=== PATIENT | female | born 2000 | race Caucasian/White ===

== ENCOUNTER 2018-02-05 21:32 | Emergency (ER) | payer OTHER, MEDICAID ==
[~2018-02-05] VITALS: Ht 157.5 cm; Wt 112.0 kg
[~2018-02-05 21:32] MED LIST: CYCL-1 PO; IBUPROFEN 600MG PO; NAPR-56 PO
[2018-02-05 21:41] VITALS: BP 139/92
[2018-02-06] MEDS ORDERED: traMADol 50MG tablet PO ONE (00:30)
[2018-02-06] MEDS ORDERED: TRAM50TA2 PO (00:41)
== END 2018-02-06 01:05 | disposition home or self-care (01) ==
LOC: ER 21:33
DX: M25.512 Pain in left shoulder (principal); R20.0 Anesthesia of skin; Z98.890 Other specified postprocedural states; Z79.899 Other long term (current) drug therapy
CPT/HCPCS: 73030; 99283

== ENCOUNTER 2018-07-21 17:28 | Emergency (ER) | payer OTHER, MEDICAID ==
[~2018-07-21] VITALS: Ht 157.5 cm; Wt 110.0 kg
[~2018-07-21 17:28] MED LIST changes: -NAPR-56 PO
[2018-07-21] MEDS ORDERED: dexamethasone sod phosphate 10mg/ml inj PO STA (19:13)
[2018-07-21] MEDS ORDERED: ketorolac trometh. 30mg/ml inj. IM ONE (19:15)
[2018-07-21 20:19] VITALS: BP 121/72
== END 2018-07-21 20:22 | disposition home or self-care (01) ==
LOC: ER 17:29
DX: L55.1 Sunburn of second degree (principal); L55.0 Sunburn of first degree; Z79.899 Other long term (current) drug therapy
CPT/HCPCS: 96372; 99283; J1100; J1885

== ENCOUNTER 2019-01-14 17:58 | Emergency (ER) | payer MEDICAID, OTHER ==
[~2019-01-14] VITALS: Ht 157.5 cm; Wt 110.0 kg
[2019-01-14 18:06] VITALS: BP 138/86
[2019-01-14] MEDS ORDERED: traMADol 50MG tablet PO ONE (19:45)
[2019-01-14] MEDS ORDERED: TRAM50TA2 PO (19:46)
== END 2019-01-14 19:58 | disposition home or self-care (01) ==
LOC: ER 17:58
DX: N63.10 Unspecified lump in the right breast, unspecified quadrant (principal); F41.9 Anxiety disorder, unspecified; Z79.899 Other long term (current) drug therapy
CPT/HCPCS: 99283

== ENCOUNTER 2019-04-27 14:18 | Emergency (ER) | payer OTHER ==
[~2019-04-27] VITALS: Ht 154.9 cm; Wt 110.0 kg
[2019-04-27 14:27] VITALS: BP 141/98
[2019-04-27] MEDS ORDERED: BENZ-16 PO (14:43)
[2019-04-27] MEDS ORDERED: ALBU8.5H8 IH (14:43)
[2019-04-27] MEDS ORDERED: AZIT-63 PO (14:43)
[2019-04-27] MEDS ORDERED: PRED20TA PO (14:43)
[2019-04-27] MEDS ORDERED: ipratropium/albuterol 3ml nebule NEB ONE (14:55)
== END 2019-04-27 15:21 | disposition home or self-care (01) ==
LOC: ER 14:18
DX: J45.901 Unspecified asthma with (acute) exacerbation (principal); J20.9 Acute bronchitis, unspecified; R19.7 Diarrhea, unspecified; F41.9 Anxiety disorder, unspecified; Z98.890 Other specified postprocedural states; Z79.2 Long term (current) use of antibiotics; Z79.899 Other long term (current) drug therapy
CPT/HCPCS: 94640; 94760; 99283

== ENCOUNTER 2019-08-23 06:17 | Emergency (ER) | payer OTHER ==
[~2019-08-23] VITALS: Ht 154.9 cm; Wt 113.6 kg
[~2019-08-23 06:17] MED LIST changes: +ALBU8.5H8 IH
[2019-08-23 06:21] VITALS: BP 122/86
== END 2019-08-23 07:14 | disposition home or self-care (01) ==
LOC: ER 06:18
DX: H00.014 Hordeolum externum left upper eyelid (principal); Z79.899 Other long term (current) drug therapy
CPT/HCPCS: 99282

== ENCOUNTER 2020-03-21 06:26 | Emergency (ER) | payer OTHER ==
[~2020-03-21] VITALS: Ht 154.9 cm; Wt 115.9 kg
[2020-03-21 06:28] VITALS: BP 142/65
== END 2020-03-21 07:11 | disposition home or self-care (01) ==
LOC: ER 06:26
DX: M79.675 Pain in left toe(s) (principal); R20.0 Anesthesia of skin; J45.909 Unspecified asthma, uncomplicated; F41.9 Anxiety disorder, unspecified; Z98.890 Other specified postprocedural states; Z79.899 Other long term (current) drug therapy
CPT/HCPCS: 73660; 99283

== ENCOUNTER 2022-10-13 10:03 | Emergency (ER) | payer MEDICAID ==
[~2022-10-13] VITALS: Ht 157.5 cm; Wt 127.3 kg
[~2022-10-13 10:03] MED LIST changes: +ALBU8.5H17 IH; -ALBU8.5H8 IH
[2022-10-13 10:21] VITALS: BP 148/100; PULSE 101; RESP 16; TEMP 98; O2SAT 99
[2022-10-13] MEDS ORDERED: MICO45CR46 VG ×3 (10:26→10:38)
[2022-10-13] MEDS ORDERED: FLUC200T PO ×3 (10:26→10:38)
== END 2022-10-13 10:44 | disposition home or self-care (01) ==
LOC: ER 10:05
DX: B37.31 Acute candidiasis of vulva and vagina (principal); J45.909 Unspecified asthma, uncomplicated; Z91.018 Allergy to other foods; Z91.040 Latex allergy status; Z79.899 Other long term (current) drug therapy
CPT/HCPCS: 99283

== ENCOUNTER 2023-03-13 09:53 | Emergency (ER) | payer MEDICAID ==
[~2023-03-13] VITALS: Ht 157.5 cm; Wt 123.6 kg
[~2023-03-13 09:53] MED LIST changes: +FLUC200T PO; +MICO45CR46 VG
[2023-03-13] MEDS ORDERED: NAPR-56 PO (11:55)
[2023-03-13] MEDS ORDERED: CEFD300C3 PO (11:55)
[2023-03-13] MEDS ORDERED: ALBU6.7H14 INH (12:00)
[2023-03-13 12:04] VITALS: BP 104/80; PULSE 95; RESP 17; TEMP 98.5; O2SAT 95
== END 2023-03-13 12:33 | disposition home or self-care (01) ==
LOC: ER 09:54
DX: J40 Bronchitis, not specified as acute or chronic (principal); F41.9 Anxiety disorder, unspecified; Z91.040 Latex allergy status; Z91.018 Allergy to other foods
CPT/HCPCS: 99283

== ENCOUNTER 2023-07-11 13:12 | Emergency (ER) | payer MEDICAID, OTHER ==
[~2023-07-11] VITALS: Ht 157.5 cm; Wt 109.1 kg
[~2023-07-11 13:12] MED LIST changes: +ALBU6.7H14 INH
[2023-07-11 13:31] VITALS: BP 130/90; PULSE 88; TEMP 98; O2SAT 98
[2023-07-11] MEDS ORDERED: ketorolac trometh inj. 60 MG/2 ML VIAL IM ONE (16:15)
[2023-07-11 16:28] VITALS: RESP 16
[2023-07-11] MEDS: ketorolac trometh. 30mg/ml inj. IM ONE (16:28)
[2023-07-11] MEDS: dexamethasone sod phosphate 10mg/ml inj IM STA (16:28)
[2023-07-11] MEDS ORDERED: PRED20TA PO (17:06)
== END 2023-07-11 17:22 | disposition home or self-care (01) ==
LOC: ER 13:12
DX: S50.11XA Contusion of right forearm, initial encounter (principal); J45.909 Unspecified asthma, uncomplicated; F41.9 Anxiety disorder, unspecified; Z91.040 Latex allergy status; Z79.899 Other long term (current) drug therapy; Z79.2 Long term (current) use of antibiotics; W01.0XXA Fall on same level from slipping, tripping and stumbling without subsequent striking against object, initial encounter; Y93.89 Activity, other specified; Y92.89 Other specified places as the place of occurrence of the external cause; Y99.8 Other external cause status
CPT/HCPCS: 73110; 96372; 99284; J1100; J1885

== ENCOUNTER 2023-07-16 16:05 | Emergency (ER) | payer OTHER ==
[~2023-07-16] VITALS: Ht 157.5 cm; Wt 130.5 kg
[~2023-07-16 16:05] MED LIST changes: +PRED20TA PO
[2023-07-16 19:05] VITALS: BP 135/75; PULSE 95; RESP 16; TEMP 98.7; O2SAT 98
== END 2023-07-16 19:07 | disposition home or self-care (01) ==
LOC: ER 16:06
DX: S06.0X9A Concussion with loss of consciousness of unspecified duration, initial encounter (principal); J45.909 Unspecified asthma, uncomplicated; R42 Dizziness and giddiness; M25.561 Pain in right knee; M25.562 Pain in left knee; Z91.018 Allergy to other foods; Z91.040 Latex allergy status; Z79.899 Other long term (current) drug therapy; W19.XXXA Unspecified fall, initial encounter; Y93.89 Activity, other specified; Y92.89 Other specified places as the place of occurrence of the external cause; Y99.8 Other external cause status
CPT/HCPCS: 70450; 73564; 99284

== ENCOUNTER 2023-09-29 21:50 | Emergency (ER) | payer MEDICAID ==
[~2023-09-29] VITALS: Ht 157.5 cm; Wt 140.0 kg
[~2023-09-29 21:50] MED LIST changes: -PRED20TA PO
[2023-09-29 21:59] VITALS: BP 137/88; PULSE 98; RESP 18; TEMP 98.5; O2SAT 94
[2023-09-29] MEDS ORDERED: IBUP-1985 PO (22:40)
[2023-09-29] MEDS ORDERED: ACET-3068 PO (22:40)
== END 2023-09-29 22:59 | disposition home or self-care (01) ==
LOC: ER 21:50
DX: S99.821A Other specified injuries of right foot, initial encounter (principal); J45.909 Unspecified asthma, uncomplicated; F41.9 Anxiety disorder, unspecified; Z91.040 Latex allergy status; Z91.018 Allergy to other foods; Z79.1 Long term (current) use of non-steroidal anti-inflammatories (NSAID); Z79.899 Other long term (current) drug therapy; Z98.890 Other specified postprocedural states; W01.0XXA Fall on same level from slipping, tripping and stumbling without subsequent striking against object, initial encounter; Y93.89 Activity, other specified; Y92.59 Other trade areas as the place of occurrence of the external cause
CPT/HCPCS: 73630; 99283

== ENCOUNTER 2024-01-24 17:29 | Emergency (ER) | payer BC ==
[~2024-01-24] VITALS: Ht 157.5 cm; Wt 143.2 kg
[~2024-01-24 17:29] MED LIST changes: +IBUP-1985 PO
[2024-01-24 18:20] LABS: BILIRUBIN,URINE NEGATIVE (Neg); CLARITY,URINE CLEAR (Clear); COLOR,URINE STRAW (Yellow); GLUCOSE, URINE NEGATIVE (Neg); KETONES,URINE NEGATIVE (Neg); LEUKOCYTE ESTERASE ,URINE NEGATIVE (Neg); NITRITES, URINE NEGATIVE (Neg); OCCULT BLOOD,URINE NEGATIVE (Neg); PROTEIN,URINE NEGATIVE (Neg); UROBILINOGEN,URINE 0.2 E.U/dL (0.2-1.0)
[2024-01-24 18:22] LABS: URINE HCG POSITIVE (NEG)
[2024-01-24 18:36] LABS: UA COLLECTION TYPE CLN CATCH MIDSTREAM
[2024-01-24 18:49] LABS: BASOPHILS % (AUTO) 0.4 % (0-1); EOSINOPHILS # (AUTO) 0.1 X10'3 (0-0.9); EOSINOPHILS % (AUTO) 1.1 % (0-6); HEMATOCRIT 37.5 % (35.0-45.0); HEMOGLOBIN 12.4 g/dl (12.0-16.0); LYMPHOCYTES # (AUTO) 2.2 X10'3 (1.1-4.8); MEAN CORPUSCULAR HEMOGLOBIN 28.7 PG (27.0-31.0); MEAN CORPUSCULAR HGB CONC 33.1 g/dL (33.0-36.5); MEAN CORPUSCULAR VOLUME 86.5 FL (78-98); MONOCYTES # (AUTO) 0.8 X10'3 (0-0.9); MONOCYTES % (AUTO) 9.2 % (2-12); NEUTROPHILS # (AUTO) 5.6 X10'3 (1.8-7.7); NEUTROPHILS % (AUTO) 64.3 % (42-75); PLATELET COUNT 346 X10'3 (140-440); RED BLOOD COUNT 4.33 X10'6 (4.20-5.60); RED CELL DISTRIBUTION WIDTH 13.5 % (11.5-14.5); WHITE BLOOD COUNT 8.8 X10'3 (4.5-11.0)
[2024-01-24 19:03] LABS: APTT 28 SECONDS (22-32); PROTHROMBIN TIME 10.3 SECONDS (9.0-12.0)
[2024-01-24 19:10] LABS: ALANINE AMINOTRANSFERASE 29 U/L (12-78); ALBUMIN 2.8 G/DL (3.4-5.0); ALBUMIN/GLOBULIN RATIO 0.7 (1.1-1.5); ALKALINE PHOSPHATASE 87 IU/L (46-116); ANION GAP 8 (8-16); ASPARTATE AMINO TRANSFERASE 24 U/L (10-37); BILIRUBIN,TOTAL 0.4 MG/DL (0.1-1.0); BLOOD UREA NITROGEN 3 MG/DL (7-18); BUN/CREATININE RATIO 4.5 (10.0-20.0); CHLORIDE 106 MMOL/L (99-107); CREATININE 0.66 MG/DL (0.40-0.90); GLUCOSE 88 MG/DL (70-104); POTASSIUM 3.5 MMOL/L (3.5-5.1); SODIUM 140 MMOL/L (135-145); TOTAL CARBON DIOXIDE 25.7 MMOL/L (24-32); eCRCL 103 ML/MIN; eGFR > 90 ML/MIN
[2024-01-24 19:31] LABS: BETA HCG,QUANTITATIVE 50019 mIU/ml
[2024-01-24 21:07] VITALS: BP 153/85; PULSE 81; RESP 16; TEMP 98.6; O2SAT 100
== END 2024-01-24 21:08 | disposition home or self-care (01) ==
LOC: ER 17:29
DX: O20.9 Hemorrhage in early pregnancy, unspecified (principal); J45.909 Unspecified asthma, uncomplicated; F41.9 Anxiety disorder, unspecified; Z3A.01 Less than 8 weeks gestation of pregnancy; Z91.018 Allergy to other foods; Z91.040 Latex allergy status; Z79.899 Other long term (current) drug therapy; Z79.1 Long term (current) use of non-steroidal anti-inflammatories (NSAID)
CPT/HCPCS: 36415; 76801; 80053; 81003; 81025; 84702; 85025; 85610; 85730; 99284

== ENCOUNTER 2024-02-06 08:43 | Emergency (ER) | payer BC ==
[~2024-02-06] VITALS: Ht 157.5 cm; Wt 139.8 kg
[2024-02-06] MEDS ORDERED: AMOX-580 PO (09:20)
[2024-02-06] MEDS: amox tr/potassium clavulanate 875/125mg TAB PO ONE (09:40)
[2024-02-06 09:43] VITALS: BP 114/72; PULSE 89; RESP 16; TEMP 98.5; O2SAT 98
== END 2024-02-06 09:44 | disposition home or self-care (01) ==
LOC: ER 08:43
DX: O99.891 Other specified diseases and conditions complicating pregnancy (principal); K04.7 Periapical abscess without sinus; J45.909 Unspecified asthma, uncomplicated; F41.9 Anxiety disorder, unspecified; Z98.890 Other specified postprocedural states; Z79.1 Long term (current) use of non-steroidal anti-inflammatories (NSAID); Z79.899 Other long term (current) drug therapy; Z91.040 Latex allergy status; Z91.018 Allergy to other foods; Z3A.14 14 weeks gestation of pregnancy
CPT/HCPCS: 99283

== ENCOUNTER 2024-02-14 22:01 | Emergency (ER) | payer BC, MEDICAID ==
[~2024-02-14] VITALS: Ht 157.5 cm; Wt 143.2 kg
[~2024-02-14 22:01] MED LIST changes: +AMOX-580 PO; +CLOT21CR VG
[2024-02-14 22:03] VITALS: TEMP 98.2
[2024-02-14 22:52] VITALS: BP 118/82; PULSE 90; RESP 16; O2SAT 99
[2024-02-14 22:54] LABS: BASOPHILS % (AUTO) 0.4 % (0-1); EOSINOPHILS # (AUTO) 0.3 X10'3 (0-0.9); EOSINOPHILS % (AUTO) 2.6 % (0-6); HEMATOCRIT 39.9 % (35.0-45.0); HEMOGLOBIN 13.2 g/dl (12.0-16.0); LYMPHOCYTES # (AUTO) 2.4 X10'3 (1.1-4.8); MEAN CORPUSCULAR HEMOGLOBIN 28.8 PG (27.0-31.0); MEAN CORPUSCULAR HGB CONC 33.1 g/dL (33.0-36.5); MEAN CORPUSCULAR VOLUME 86.8 FL (78-98); MEAN PLATELET VOLUME 7.3 FL (7.4-10.4); MONOCYTES # (AUTO) 0.8 X10'3 (0-0.9); MONOCYTES % (AUTO) 7.5 % (2-12); NEUTROPHILS # (AUTO) 6.6 X10'3 (1.8-7.7); NEUTROPHILS % (AUTO) 65.5 % (42-75); PLATELET COUNT 344 X10'3 (140-440); RED CELL DISTRIBUTION WIDTH 13.5 % (11.5-14.5); WHITE BLOOD COUNT 10.1 X10'3 (4.5-11.0)
[2024-02-14] MEDS: CefTRIAXone 1000mg IM Kit (w/lidocaine diluent) IM ONE (22:57)
[2024-02-14 23:00] LABS: ALANINE AMINOTRANSFERASE 26 U/L (12-78); ALBUMIN 2.8 G/DL (3.4-5.0); ALBUMIN/GLOBULIN RATIO 0.6 (1.1-1.5); ALKALINE PHOSPHATASE 99 IU/L (46-116); ANION GAP 7 (8-16); ASPARTATE AMINO TRANSFERASE 21 U/L (10-37); BILIRUBIN,TOTAL 0.4 MG/DL (0.1-1.0); BLOOD UREA NITROGEN 6 MG/DL (7-18); BUN/CREATININE RATIO 8.6 (10.0-20.0); CALCIUM 8.7 MG/DL (8.5-10.1); CHLORIDE 105 MMOL/L (99-107); GLUCOSE 89 MG/DL (70-104); POTASSIUM 3.6 MMOL/L (3.5-5.1); SODIUM 137 MMOL/L (135-145); TOTAL CARBON DIOXIDE 25.4 MMOL/L (24-32); TOTAL PROTEIN 7.4 G/DL (6.4-8.2); eCRCL 97 ML/MIN; eGFR > 90 ML/MIN
[2024-02-14 23:25] LABS: BETA HCG,QUANTITATIVE 17188 mIU/ml
[2024-02-15 00:01] LABS: BILIRUBIN,URINE NEGATIVE (Neg); CLARITY,URINE SLIGHTLY CLOUDY (Clear); COLOR,URINE YELLOW (Yellow); GLUCOSE, URINE NEGATIVE (Neg); KETONES,URINE 15 mg/dl (Neg); LEUKOCYTE ESTERASE ,URINE NEGATIVE (Neg); NITRITES, URINE NEGATIVE (Neg); OCCULT BLOOD,URINE NEGATIVE (Neg); PROTEIN,URINE NEGATIVE (Neg)
[2024-02-15 00:23] LABS: UA COLLECTION TYPE CLN CATCH MIDSTREAM
[2024-02-15 00:25] LABS: BACTERIA,URINE 2+ /HPF (Neg); RBC,URINE NONE SEEN /HPF (0-2); SQUAMOUS EPITHELIAL CELL,UR MANY /LPF (FEW); WBC,URINE 0-4 /HPF (0-4)
== END 2024-02-14 23:25 | disposition home or self-care (01) ==
LOC: ER 22:02
DX: O20.9 Hemorrhage in early pregnancy, unspecified (principal); O99.891 Other specified diseases and conditions complicating pregnancy; R10.2 Pelvic and perineal pain; O99.512 Diseases of the respiratory system complicating pregnancy, second trimester; J45.909 Unspecified asthma, uncomplicated; Z3A.15 15 weeks gestation of pregnancy; Z91.018 Allergy to other foods; Z91.040 Latex allergy status; Z98.818 Other dental procedure status; Z79.2 Long term (current) use of antibiotics; Z79.899 Other long term (current) drug therapy
CPT/HCPCS: 36415; 80053; 81001; 84702; 85025; 86900; 86901; 96372; 99283; J0696; 81003